=== PATIENT | male | born 1975 | race African-American/Black ===

== ENCOUNTER 2020-11-22 11:23 | Outpatient (CLI) | payer OTHER, SELFPAY ==
--- NOTE | ~2020-11-22 | XR_ITS ---
EXAMINATION: XR knee LT min 4V DATE: 11/22/2020 11:49 INDICATION: Left knee pain. TECHNIQUE: 4 views of left knee were obtained. COMPARISON: None. FINDINGS: Bone alignment is normal. No fracture. There is severe osteoarthritis of lateral compartmen t, mild osteoarthritis of lateral compartment, and moderate osteoarthritis of patellofemoral compartm ent. There is a small knee joint effusion. IMPRESSION: 1. Severe left knee osteoarthritis. 2. Small left knee joint effusion. Reviewed, dictated and finalized at location A.
== END 2020-11-22 11:24 ==
PROVIDERS: Visit Provider Physician Assistant
DX: M25.562 Pain in left knee (principal); M17.12 Unilateral primary osteoarthritis, left knee; M25.462 Effusion, left knee
CPT/HCPCS: 73564